=== PATIENT | female | born 1990 | race Caucasian/White ===

== ENCOUNTER 2020-06-23 00:12 | Outpatient (CLI) | payer OTHER, SELFPAY ==
[2020-06-23 20:45] LABS: SARS-CoV-2 RNA PCR Negative
== END 2020-06-23 00:13 | disposition home or self-care (01) ==
LOC: ANHCOVIDDT 00:12
PROVIDERS: Visit Provider Orthopaedic Surgery
DX: Z01.812 Encounter for preprocedural laboratory examination (principal); Z20.828 Contact with and (suspected) exposure to other viral communicable diseases
CPT/HCPCS: 87635; C9803; U0003

== ENCOUNTER 2020-06-23 08:55 | Outpatient (CLI) | payer OTHER, SELFPAY ==
--- NOTE | 2020-06-23 09:00 | ECG_ITS ---
Measurements Intervals [place] Rate: 100 P: 7 AR: 144 QRS: 61 QRSD: 77 T: 9 QT: 342 QTc: 441 Interpretive Statements SINUS TACHYCARDIA BORDERLINE ST-T WAVE ABNORMALITY- INFERIOR LEADS BORDERLINE ECG Electronically Signed On 06-23-2020 9:10:55 INSURANCE CONSULTANT by Keven Hamilton D.O.
== END 2020-06-23 08:56 | disposition home or self-care (01) ==
LOC: ANHSURGERY 09:00
PROVIDERS: Visit Provider Orthopaedic Surgery
DX: Z01.810 Encounter for preprocedural cardiovascular examination (principal); I10 Essential (primary) hypertension; R00.0 Tachycardia, unspecified; R94.31 Abnormal electrocardiogram [ECG] [EKG]; M72.2 Plantar fascial fibromatosis
CPT/HCPCS: 93005

== ENCOUNTER 2020-06-26 01:38 | Day surgery (SDC) | payer OTHER, SELFPAY ==
--- NOTE | 2020-05-28 11:29 | WPDANESEPPF ---
Anes - Initial Pre Proc Eval Procedure: Operation Date: 05/29/20 11:30 Proposed Procedures p Left Foot Plantar Fascia Microdebridement - Shai Arroyo MD Date/Time: 05/28/20 11:29 Surgeon: Shai Arroyo MD Pre Op Diagnosis: Left Foot Plantar Fasciitis Patient Data Age: 30 Gender: F Height: Weight: Allergies Allergy/AdvReac Type Severity Reaction Status Date / Time No Known Allergies Allergy Verified 05/27/20 13:58 Home Medications Medication Instructions Recorded Confirmed Type escitalopram oxalate 20 mg tablet 20 mg PO DAILY 05/27/20 History lisinopril 10 mg tablet 10 mg PO DAILY 05/27/20 History PMFSH Past Medical History Medical History (Updated 05/27/20 @ 15:33 by Shai Arroyo MD) Depression Hypertension Neuritis of left foot Neuritis of right foot Plantar fasciitis of left foot Family History Family History Other Family history of arthritis Social History Social History Smoking status: Never smoker Alcohol intake: current Drinks per week: 1 Anes - Eval Final PreProcedure Day of Procedure 05/28/20 11:29 Patient weight: overweight Heart: regular rate and rhythm Lungs: clear to auscultation and normal air movement Airway: Mallampati scale class II Neurological: alert and oriented Last oral intake: >/= 8 hours ASA classification: II Emergent: no Anesthetic plan: proceed Anesthesia type and monitoring: general LMA Informed Consent: The patient's anesthetic plan and its attendant risks and benefits were discussed with the patient/family/POA. Questions were solicited and answers provided to the satisfaction of the patient/family/POA.
[2020-06-12 13:15] VITALS: BMI 30.9
--- NOTE | 2020-06-26 07:15 | WPDHPUPDATE1 ---
History and Physical Update Update Date/Time: 06/26/20 07:15 History and Physical has been reviewed, including an updated exam of the patient. There are NO changes in the patient's condition. Covid test negative. Risks, benefits, and alternatives have been discussed and questions answered. Patient agrees to proceed with procedure.
[2020-06-26] MEDS: KETOROLAC 15 MG/ML VIAL (*BKC) IV PUSH (08:22)
[2020-06-26] MEDS: ACETAMINOPHEN 500 MG TABLET 1000 MG PO (08:22)
[2020-06-26] MEDS: LACTATED RINGERS 1,000 ML 30 ML IV CONT (08:23)
[2020-06-26 08:49] VITALS: BP 126/89; PULSE 112; RESP 18; TEMP 36.3; O2SAT 100; BMI 34.8
--- NOTE | 2020-06-26 08:49 | P.PNAN_ITS ---
Anes - Initial Pre Proc Eval Procedure: Operation Date: 06/26/20 09:30 Proposed Procedures p Left Foot Plantar Fascia Microdebridement - Shai Arroyo MD Date/Time: 06/26/20 08:49 Surgeon: Shai Arroyo MD Pre Op Diagnosis: Left Foot Plantar Fasciitis Patient Data Age: 30 Gender: F Height: 5 ft 4 in Weight: 81.8 kg Allergies Allergy/AdvReac Type Severity Reaction Status Date / Time No Known Allergies Allergy Verified 06/26/20 08:28 Home Medications Medication Instructions Recorded Confirmed Type escitalopram oxalate 20 mg tablet 20 mg PO HS 05/27/20 06/12/20 History lisinopril 10 mg tablet 10 mg PO HS 05/27/20 06/12/20 History Patient hx anesthesia problems: none Family hx anesthesia problems: none [facility] Past Medical History Medical History Depression Hypertension Neuritis of left foot Neuritis of right foot Plantar fasciitis of left foot Family History Family History Other Family history of arthritis Social History Social History Smoking status: Never smoker Alcohol intake: current Drinks per week: 3 Substance use: current Substance use type: marijuana Other substance usage details: [place] SMOKES WEEKLY Last use: 06/04/20 Living arrangements: with family Spiritual care concerns: No Anes - Eval Final PreProcedure Day of Procedure 06/26/20 08:49 Patient weight: obese Heart: regular rate and rhythm Lungs: clear to auscultation Airway: Mallampati scale class II Neurological: alert and oriented Last oral intake: >/= 8 hours ASA classification: II Emergent: no Anesthetic plan: proceed Anesthesia type and monitoring: general LMA and standard monitoring Informed Consent: The patient's anesthetic plan and its attendant risks and benefits were discussed with the patient/family/POA. Questions were solicited and answers provided to the satisfaction of the patient/family/POA.
[2020-06-26] MEDS: ceFAZolin 2 GM/D5W 50 ML 2 GM/50 ML BAG IVPB (10:06)
[2020-06-26 10:33] VITALS: BP 112/75; PULSE 88; RESP 12; TEMP 36.6; O2SAT 98
--- NOTE | 2020-06-26 10:37 | PM.PROC ---
Procedure Note - Detailed Date of procedure: 06/26/20 Pre-op diagnosis: Left Foot Plantar Fasciitis Post-op diagnosis: same Procedure performed: Left foot fasciotomy Description of procedure: Indications: Patient is a 30-year-old woman with recalcitrant leftl plantar fasciitis and heel pain. They have failed conservative treatment with physical therapy, home stretching, custom inserts, cortisone injections and medication. She presents now for operative treatment. What was done: Patient identified in the preoperative holding. Informed consent given. Operative extremity marked. Patient received intravenous antibiotics. Patient brought to the operating room where underwent general anesthetic by anesthesia team. Positioned supine on operating room table. Time-out performed confirming the patient, site of the surgery and the plan. Left foot prepped and draped usual sterile surgical fashion using a ChloraPrep skin solution. 0.5% Marcaine plain was used as local anesthetic for left heel. Preoperatively the Patient marked the area of maximum intensity of pain on left heel. Using this as a centering point we made an approximately 4 centimeter sq around this area. Addressing the left foot 1st we then used a 0.062 in K-wire to incise the skin in multiple positions for a total of 20 points. The radiofrequency probe was then inserted into each point and a radiofrequency shock was delivered to the area. At each area a release and division of the plantar fascia was performed. Steri-Strips were then applied to the foot. Sterile dressing applied. The patient was then woken from anesthesia, extubated and taken to the recovery room in stable condition. All sponge, needle, instrument counts were correct at the end of the case. Anesthesia: GLMA Surgeon: Shia Arroyo MD Patient Care Coordinator: pharmacy sales assistant Estimated blood loss (mL): 5 Drains: No Packing: No Pathology: none sent Complications: None Condition: stable Disposition: PACU
[2020-06-26 10:45] VITALS: BP 114/76; PULSE 99; RESP 13; O2SAT 96
[2020-06-26 11:00] VITALS: BP 126/85; PULSE 108; RESP 12; O2SAT 96
[2020-06-26 11:10] VITALS: BP 120/74; PULSE 98; RESP 16
[2020-06-26] MEDS: ONDANSETRON INJ 4 MG/2 ML VIAL IV PUSH (11:16)
== END 2020-06-26 12:00 | disposition home or self-care (01) ==
PROVIDERS: Visit Provider Orthopaedic Surgery
PROC: (CPT 28008; principal; 2020-06-26 09:30)
DX: M72.2 Plantar fascial fibromatosis (principal); I10 Essential (primary) hypertension; F32.9 Major depressive disorder, single episode, unspecified; E66.9 Obesity, unspecified; Z68.34 Body mass index [BMI] 34.0-34.9, adult
CPT/HCPCS: 28008; 87635; 93005; A9270; C9803; J0690; J1100; J1885; J2250; J2405; J2704; J3010; J7120; U0003